=== PATIENT | female | born 1985 ===

== ENCOUNTER → 2024-08-11 | Outpatient (CLI) | payer SELFPAY ==
[2024-08-15 11:27] LABS: HPV HIGH RISK BY TMA Not Detected; HPV SOURCE Cervical
== END | disposition home or self-care (01) ==
LOC: LAB 11:26 → LAB SHORT 11:26
PROVIDERS: Family Medicine
DX: Z12.4 Encounter for screening for malignant neoplasm of cervix (principal)
CPT/HCPCS: 87624; G0123